=== PATIENT | male | born 1935 | race Caucasian/White ===

== ENCOUNTER 2016-09-24 16:55 | Emergency (ER) | payer MEDICARE | END 2016-09-24 21:53 | disposition home or self-care (01) | LOC: ER1 16:55 | PROVIDERS: Internal Medicine Gastroenterology | PROC: 0DC38ZZ Extirpation of Matter from Lower Esophagus, Via Natural or Artificial Opening Endoscopic (ICD-10-PCS; principal; 2016-09-24 19:57) | DX: T18.128A Food in esophagus causing other injury, initial encounter (principal); C61 Malignant neoplasm of prostate; Z98.890 Other specified postprocedural states; Z90.49 Acquired absence of other specified parts of digestive tract; X58.XXXA Exposure to other specified factors, initial encounter | CPT/HCPCS: 82962; 99283; J2250; J3010; J7040 ==

== ENCOUNTER → 2021-06-25 | Outpatient (CLI) | payer MEDICARE | LOC: KOH-I 11:23 | DX: R60.9 Edema, unspecified (principal); I73.9 Peripheral vascular disease, unspecified | CPT/HCPCS: 93925 ==

== ENCOUNTER → 2021-06-29 | Outpatient (CLI) | payer MEDICARE | LOC: WCC 07:29 | DX: I87.2 Venous insufficiency (chronic) (peripheral) (principal); L97.812 Non-pressure chronic ulcer of other part of right lower leg with fat layer exposed; I10 Essential (primary) hypertension; E11.40 Type 2 diabetes mellitus with diabetic neuropathy, unspecified; E66.01 Morbid (severe) obesity due to excess calories; E11.622 Type 2 diabetes mellitus with other skin ulcer; Z87.891 Personal history of nicotine dependence; R60.0 Localized edema ==

== ENCOUNTER → 2021-07-08 | Outpatient (CLI) | payer MEDICARE | LOC: WCC 07:38 | DX: S80.821D Blister (nonthermal), right lower leg, subsequent encounter (principal); E11.622 Type 2 diabetes mellitus with other skin ulcer; I10 Essential (primary) hypertension; E66.01 Morbid (severe) obesity due to excess calories; R60.0 Localized edema; E11.40 Type 2 diabetes mellitus with diabetic neuropathy, unspecified | CPT/HCPCS: G0463 ==

== ENCOUNTER → 2022-01-19 | Outpatient (CLI) | payer OTHER, MEDICARE | LOC: KOH-I 14:55 | DX: R10.9 Unspecified abdominal pain (principal); K76.9 Liver disease, unspecified | CPT/HCPCS: 74176 ==